=== PATIENT | male | born 1940 | race Caucasian/White ===

== ENCOUNTER → 2016-04-28 | Outpatient (CLI) | payer MEDICARE, OTHER ==
--- NOTE | 2016-04-28 15:10 | RADRPT ---
EXAM DATE/TIME: 04/28/2016 15:00 [facility] COMPARISON: No previous studies available for comparison. INDICATIONS : Right wrist pain with no known injury. MEDICAL HISTORY : None. SURGICAL HISTORY : None. ENCOUNTER: Initial ACUITY: 2 months PAIN SCORE: 10/10 LOCATION: Right anterior wrist. FINDINGS: Three view examination of the right wrist demonstrates soft tissue swelling. No fracture. Vascular ca lcifications are seen. Bony mineralization is normal. CONCLUSION: Soft tissue swelling without fracture. Brent العلي MD on April 28, 2016 at 15:07 Board Certified Radiologist. This report was verified electronically.
== END ==
LOC: HLAB 14:41
PROVIDERS: ATTEND Family Medicine
DX: M25.531 Pain in right wrist (principal)
CPT/HCPCS: 73110

== ENCOUNTER → 2017-06-14 | Outpatient (CLI) | payer OTHER, MEDICARE ==
[~2017-06-14] MED LIST: ADVA250A INH; ASPI1CHW4 CHEW; HYDR-3583 PO; VENTAER INH
== END ==
LOC: CPRE 09:38
PROVIDERS: ATTEND Orthopaedic Surgery Orthopaedic Trauma
DX: M79.609 Pain in unspecified limb (principal); Z96.60 Presence of unspecified orthopedic joint implant; Z79.01 Long term (current) use of anticoagulants; Z13.9 Encounter for screening, unspecified

== ENCOUNTER 2017-06-22 05:26 | Inpatient (IN) | payer MEDICARE, OTHER ==
[~2017-06-22] VITALS: Ht 188 cm; Wt 88.5 kg
[~2017-06-22 05:26] MED LIST changes: -ASPI1CHW4 CHEW; -HYDR-3583 PO
[2017-06-22] MEDS ORDERED: SODIUM CHLORID 0.9% 500 ML IV PRN (06:00)
[2017-06-22] MEDS ORDERED: POVIDONE IODINE 5% (ANTISEPSIS KIT) 4 APPLICATIONS EACH NARE PRN (06:00)
[2017-06-22] MEDS ORDERED: CHLORHEXIDINE GLUCONATE 2 % 1 PACK (2 CLOTHS) TOPICAL PRN (06:00)
[2017-06-22] MEDS ORDERED: METOPROLOL TARTRATE 25 MG TAB PO PRN (06:00)
[2017-06-22] MEDS ORDERED: LACTATED RINGER'S 1000 ML IV PRN (06:00)
[2017-06-22] MEDS ORDERED: ACETAMINOPHEN 1000 MG/100 ML 100 ML IV ONE (06:15)
[2017-06-22] MEDS ORDERED: CELECOXIB 200 MG CAP PO ONE (06:15)
[2017-06-22] MEDS ORDERED: ONDANSETRON HCL 4 MG/2 ML VIAL IV PUSH ONE (06:15)
[2017-06-22] MEDS ORDERED: FAMOTIDINE 20 MG/2 ML VIAL IV PUSH ONE (06:15)
[2017-06-22] MEDS ORDERED: CHLORHEXIDINE GLUCONATE 4% SOLN 120 ML BTL TOPICAL SCH (06:15)
[2017-06-22] MEDS ORDERED: DEXAMETHASONE SOD PHOS 20 MG/5 ML VIAL IV PUSH ONE (06:15)
[2017-06-22] MEDS ORDERED: GABAPENTIN 300 MG CAP PO ONE (06:15)
[2017-06-22] MEDS ORDERED: ceFAZolin 2 GM PREMIX 50 ML IV SCH (06:15)
[2017-06-22] MEDS ORDERED: VANCOMYCIN 1 GM/200 ML INJ 200 ML IV SCH (06:15)
[2017-06-22] MEDS ORDERED: ASPI1CHW4 CHEW (07:47)
[2017-06-22] MEDS ORDERED: HYDR-3583 PO (07:47)
[2017-06-22] MEDS ORDERED: BUPIVACAINE-EPI PF 0.25% INJ 20 ML, BUPIVACAINE LIPOSO PF 1.3% INJ 20 ML in SODIUM CHLO... P-ARTICULR SCH (09:00)
[2017-06-22] MEDS ORDERED: TRANEXAMIC ACID IV SCH (09:00)
[2017-06-22] MEDS ORDERED: SODIUM CHLORIDE 0.9% IV SCH (09:00)
[2017-06-22] MEDS ORDERED: GENTAMICIN SULFATE 80 MG/2 ML VIAL ONE (09:33)
[2017-06-22] MEDS ORDERED: ROCURONIUM INJ 50 MG/5 ML SYRINGE IV PUSH ONE (12:00)
[2017-06-22] MEDS ORDERED: PHENYLEPH/NS 1000 MCG/10 ML SYR IV ONE (12:00)
[2017-06-22] MEDS ORDERED: LACTATED RINGER'S 1000 ML INJ 1,000 ML IV ONE (12:00)
[2017-06-22] MEDS ORDERED: NEOSTIGMINE 5 MG/5 ML SYRINGE IV PUSH ONE (12:00)
[2017-06-22] MEDS ORDERED: GLYCOPYRROLATE 1 MG/5 ML SYRINGE IV PUSH ONE (12:00)
[2017-06-22] MEDS ORDERED: PROPOFOL 200 MG/20 ML AMP IV ONE (12:00)
[2017-06-22] MEDS ORDERED: LIDOCAINE HCL 1% PF 5 ML SYRINGE OTHER ONE (12:00)
[2017-06-22] MEDS ORDERED: LABETALOL HCL 100 MG/20 ML VIAL IV ONE (12:00)
--- NOTE | 2017-06-22 12:07 | PD.OP ---
cc: Ronald Meraz MD Operative Report Date of Surgery: June 22, 2017 Preoperative Diagnosis: Severe left hip osteoarthritis Postoperative Diagnosis: Procedure: Left total hip arthroplasty Anesthesia: General Surgeon: Ronald Meraz Carbide Grinder(s): TATIANA Bates PA-C The surgical procedure was assisted by my physician real estate administrative assistant. My P.A. presence was necessary throughout this case for the manipulation and positioning of the surgical extremity. My P.A. was assisting me throughout the duration of this procedure. The skill set of a physician real estate administrative assistant was medically necessary to complete this procedure. During the surgical case the surgical services asst was working at the back table and the physician real estate administrative assistant was directly assisting me. Operation and Findings: PLAN OF ACTIVITY Weight bear as tolerated. IMPLANTS USED DePuy Corail size 15 high offset stem with a size [52] [place] Gription cup, [ 52/36] Altrx poly liner, and a [36+1] ceramic Biolox ceramic head. DETAILS OF PROCEDURE: This patient has a long history of hip pain. Patient was found to have severe osteoarthritis. The patient had radiographic evidence of joint space narrowing with [id number] arthritis and osteophytes around the acetabulum as well as the femoral head. There was also some cystic changes. The patient failed conservative treatment with pain medications, anti-inflammatories, physical therapy, assistive devices including a cane, as well as therapeutic injection of the hip. Patient's hip arthritis was limiting his ability to ambulate and perform activities of daily living. The patient wished to proceed with surgery and informed consent was obtained. Operative site was marked. I discussed both posterior approach and anterior approach with the patient and decision was made for anterior approach. Patient was brought to OR and placed on OR table. IV sedation and general anesthesia was administered by anesthesiologist. Patient positioned on a Farzana table and was given IV antibiotics. Time-out procedure was performed. The hip and thigh were prepped with alcohol followed by Hibiclens. The thigh was draped in the usual sterile fashion. Clean Air Suite was used for this procedure. The procedure began with a 5-inch incision over the anterolateral thigh. Subcutaneous tissue was dissected with Bovie. The fascia over the tensa fasciae latae was incised. Care was taken to avoid injury to the lateral femoral cutaneous nerve. The tensor muscle was retracted laterally. Sartorius was retracted medially. Retractors were now placed. The reflected head of the rectus is now elevated. A capsulotomy was performed over the anterior head capsule. Sutures were placed to help retract the capsule. At this point the femoral head and neck were identified. With soft tissue protected, oscillating saw was used to make a cut through the femoral neck, the femoral head was now removed. At this point attention was turned to preparation of the acetabulum. The labrum was excised. The acetabulum was sequentially reamed up to size [52]. A [place] cup was now placed. Fluoroscopy was used to aid in identification of appropriate version. Cup was fully impacted and found to have excellent fit. Hole eliminator was now placed. The liner was now impacted into the cup. At this point the hip was externally rotated. A hook was placed around the proximal femur. The capsule was released off the lateral and medial femur. The hip was now extended and adducted. Retractors were placed around the proximal femur to allow for exposure. A box osteotome was used to remove the lateral cortex of the femoral neck. A broach was used to help lateralize the prosthesis. Canal finder was used to create a path down the canal. Next, the canal was sequentially broached up to size [15]. This was found to be an excellent fit. Calcar planer was placed. A standard head was placed, and the hip was reduced. The hip was found to have excellent stability with good range of motion. The leg lengths were measured under fluoroscopy and found to be equal compared to preoperatively. Trial broach was removed. The Corail stem was opened. Stem was fully impacted into the proximal femur in appropriate version. The femoral head was placed. The hip was again reduced. Fluoroscopy confirmed excellent alignment of prosthesis. The wound was thoroughly irrigated and capsule was closed with #1 Vicryl. The fascia over the tensor fasciae muscle was closed with #1 Vicryl, subcutaneous tissue was closed with 3-0 Vicryl and the skin was closed with godfrey and Dermabond skin closure. The capsule layers, muscle, and subcutaneous tissue were injected with a mixture of saline and bupivicaine. Dressings were applied. The patient was transferred to Recovery Room in stable condition. Ronald Meraz MD June 22, 2017 12:07
[2017-06-22] MEDS ORDERED: ACETAMINOPHEN/HYDROcodone 325 MG/10 MG TAB PO PRN (12:15)
[2017-06-22] MEDS ORDERED: ACETAMINOPHEN/HYDROcodone 325 MG/5 MG TAB PO PRN (12:15)
[2017-06-22] MEDS ORDERED: ACETAMINOPHEN/HYDROcodone 325 MG/7.5 MG TAB PO PRN (12:15)
[2017-06-22] MEDS ORDERED: ONDANSETRON HCL 4 MG/2 ML VIAL IVP PRN (12:15)
[2017-06-22] MEDS ORDERED: Post-op Orders (for Pharmacy) XX ONE (12:15)
[2017-06-22] MEDS ORDERED: MORPHINE SULFATE 4 MG/ML INJ IV PUSH PRN (12:15)
[2017-06-22] MEDS ORDERED: NALOXONE HCL 0.4 MG/ML AMP IV PUSH PRN (12:15)
[2017-06-22] MEDS ORDERED: DO NOT ADM ANY ANTICOAGULANT DRUGS PRN (12:36)
[2017-06-22] MEDS ORDERED: *morphine SULFATE 4 MG/ML PERIprocedure ONLY ONE (13:21)
[2017-06-22] MEDS: LACTATED RINGER'S 1000 ML INJ 1,000 ML IV SCH (13:30)
[2017-06-22] MEDS ORDERED: ASPIRIN 81 MG CHEW TAB ONE (13:57)
[2017-06-22] MEDS ORDERED: KETOROLAC TROMETHAMINE 30 MG/ML (IVP) VIAL IV PUSH SCH (15:00)
[2017-06-22] MEDS ORDERED: TRANEXAMIC ACID INJ 1,000 MG in SODIUM CHLORIDE 0.9% INJ 100 ML IV ONE (15:00)
--- NOTE | 2017-06-22 15:03 | RADRPT ---
EXAM DATE/TIME: 06/22/2017 13:34 [facility] COMPARISON: No previous studies available for comparison. INDICATIONS : Post op left hip surgery. MEDICAL HISTORY : None. SURGICAL HISTORY : None. ENCOUNTER: Initial ACUITY: 1 day PAIN SCORE: 0/10 LOCATION: Left hip and pelvis FINDINGS: Left hip and AP pelvis views were performed. Non-cemented left-sided total hip arthroplasty with ort hotopic alignment. Hardware is intact. Multiple skin godfrey. CONCLUSION: Expected postsurgical findings status post total hip arthroplasty. Magdaleno Serrano MD on June 22, 2017 at 15:00 Board Certified Radiologist. This report was verified electronically.
[2017-06-22 15:30] VITALS: BP 126/68; PULSE 72; RESP 18; TEMP 98.1; O2SAT 95
[2017-06-22] MEDS: ceFAZolin 2 GM PREMIX 50 ML IV SCH ×2 (16:13→21:59)
--- NOTE | 2017-06-22 16:18 | RADRPT ---
EXAM DATE/TIME: 06/22/2017 09:33 [facility] COMPARISON: No previous studies available for comparison. INDICATIONS : Left total hip arthroplasty. MEDICAL HISTORY : Unobtainable. SURGICAL HISTORY : Unobtainable. ENCOUNTER: Initial ACUITY: 1 day PAIN SCORE: Non-responsive. LOCATION: Left hip FINDINGS: 2 images are recorded digitally the operating room using C-arm during left total hip arthroplasty. CONCLUSION: Intraoperative images. Magdaleno Serrano MD on June 22, 2017 at 16:15 Board Certified Radiologist. This report was verified electronically.
[2017-06-22] MEDS: ACETAMINOPHEN 1000 MG/100 ML 100 ML IV SCH (16:37)
[2017-06-22] MEDS: ASPIRIN 81 MG CHEW TAB CHEW SCH (18:17)
[2017-06-22 20:00] VITALS: BP 133/60; PULSE 68; RESP 22; TEMP 97.4; O2SAT 96
[2017-06-22] MEDS: VANCOMYCIN INJ 1,000 MG in SODIUM CHLOR 0.9% 250 ML INJ 250 ML IV SCH (21:58)
[2017-06-22] MEDS: CELECOXIB 200 MG CAP PO SCH (21:59)
[2017-06-22] MEDS: ALBUTEROL SULFATE 90 MCG/ACT HFA 8 GM INHALER INH SCH (22:01)
[2017-06-22] MEDS: BUDESONIDE-FORMOTEROL 160/4.5 MCG INHALER INH SCH (22:01)
[2017-06-23] VITALS: BP 123/63; PULSE 78; RESP 22; TEMP 97.4; O2SAT 93
[2017-06-23] MEDS: LACTATED RINGER'S 1000 ML INJ 1,000 ML IV SCH ×3 (00:28→21:03)
[2017-06-23] MEDS: ACETAMINOPHEN 1000 MG/100 ML 100 ML IV SCH ×2 (03:45→15:25)
[2017-06-23] MEDS: ceFAZolin 2 GM PREMIX 50 ML IV SCH (03:45)
[2017-06-23 04:00] VITALS: BP 121/58; PULSE 70; RESP 20; TEMP 97.8; O2SAT 95
[2017-06-23 07:02] LABS: HEMATOCRIT 34.2 % (39.0-51.0); HEMOGLOBIN 11.7 GM/DL (13.0-17.0)
[2017-06-23 08:00] VITALS: BP 112/55; PULSE 69; RESP 18; TEMP 97.6; O2SAT 94
--- NOTE | 2017-06-23 08:20 | PD.ORT.PN ---
Subjective Subjective Remarks Hip is doing good status post total hip arthroplasty POD 1. His only complaint is that he is having difficulty urinating Objective Vitals Vital Signs Date Time Temp Pulse Resp B/P (MAP) Pulse Ox O2 Delivery O2 Flow Rate FiO2 06/23/17 04:00 97.8 70 20 121/58 (79) 95 06/23/17 00:00 97.4 78 22 123/63 (83) 93 06/22/17 20:00 97.4 68 22 133/60 (84) 96 06/22/17 15:30 98.1 72 18 126/68 (87) 95 06/22/17 14:40 97.9 70 16 117/64 (81) 94 Nasal Cannula 2 06/22/17 14:30 70 16 117/64 (81) 94 Nasal Cannula 2 06/22/17 14:00 79 16 129/77 (94) 95 Nasal Cannula 2 06/22/17 13:45 69 14 123/60 (81) 95 Nasal Cannula 6 06/22/17 13:30 85 16 147/76 (99) 95 Nasal Cannula 6 06/22/17 13:15 71 16 109/59 (76) 96 Nasal Cannula 6 06/22/17 13:00 71 16 110/59 (76) 96 Nasal Cannula 6 06/22/17 12:45 76 16 112/57 (75) 95 Nasal Cannula 6 06/22/17 12:35 97.9 93 14 122/65 (84) 90 Nasal Cannula 6 I/O 06/22/17 06/22/17 06/22/17 06/23/17 06/23/17 06/23/17 07:00 15:00 23:00 07:00 15:00 23:00 Intake Total 1200 ml 810 ml 1366 ml Output Total 300 ml 350 ml 200 ml Balance 900 ml 460 ml 1166 ml Intake Oral 150 ml 320 ml IV Total 660 ml 1046 ml Other 1200 ml Output Urine Total 350 ml 200 ml Estimated Blood Loss 300 ml # Bowel Movements 0 Result Diagram: 06/23/17 0525 Imaging Last 24 hours Impressions Hip and Pelvis X-Ray 06/22/17 1203 Signed Impressions: Service Date/Time: Thursday, June 22, 2017 13:34 - CONCLUSION: Expected postsurgical findings status post total hip arthroplasty. Magdaleno Serrano MD Objective Remarks Left lower extremity: Clean dry dressings intact. Minimal swelling and ecchymosis surrounding the incision. He has no pain with knee or ankle range of motion. Distally he has intact sensation with good capillary refills. He has active dorsiflexion and plantarflexion of foot. Assessment & Plan Problem List: (1) Status post left hip replacement ICD Codes: Z96.642 - Presence of left artificial hip joint Assessment and Plan Left total hip arthroplasty POD 1 Physical therapy weightbearing as tolerated twice daily Lovenox Incentive spirometry Dry dressings changed POD 2 with Primapore only. He will begin adding Xeroform over incision POD 10 daily. If Xeroform is not available bacitracin may be used. Plan for discharge home tomorrow Continue to assess difficulty with urination Maxim Alvares Jr. June 23, 2017 08:20
--- NOTE | 2017-06-23 08:21 | HHI.FF ---
Face to Face Verification Diagnosis: (1) Status post left hip replacement Physical Therapy Gait training, Safety evaluation Hip: Total hip, Protocol: Left Left LE Weight Bearing: WB as tolerated S/P Spinal Fusion: Gait training with walker Nursing Dressing Changes: Daily dressing change, Xeroform (Begin adding on 07/02/2017 daily with Primapore. If Xeroform is not available apply bacitracin), Coverderm /Primapore I have seen patient Lee Turner on 06/23/17. My clinical findings support the need for the requested home health care services because: Limited ability to care for self I certify that my clinical findings support that this patient is homebound because: Unsteady gait/balance Maxim Alvares Jr. June 23, 2017 08:21
[2017-06-23] MEDS: ASPIRIN 81 MG CHEW TAB CHEW SCH ×2 (08:37→21:03)
[2017-06-23] MEDS: CELECOXIB 200 MG CAP PO SCH ×2 (08:37→21:03)
[2017-06-23] MEDS: VANCOMYCIN INJ 1,000 MG in SODIUM CHLOR 0.9% 250 ML INJ 250 ML IV SCH (08:37)
[2017-06-23] MEDS: BUDESONIDE-FORMOTEROL 160/4.5 MCG INHALER INH SCH ×2 (08:38→21:08)
[2017-06-23] MEDS: ALBUTEROL SULFATE 90 MCG/ACT HFA 8 GM INHALER INH SCH ×2 (08:38→21:08)
[2017-06-23 12:00] VITALS: BP 140/65; PULSE 93; RESP 18; TEMP 98.3; O2SAT 95
[2017-06-23 16:00] VITALS: BP 124/58; PULSE 83; RESP 18; TEMP 97.8; O2SAT 95
[2017-06-23 19:49] VITALS: BP 140/64; PULSE 88; RESP 18; TEMP 97.9; O2SAT 96
[2017-06-23] MEDS: DOCUSATE SODIUM 100 MG CAP PO SCH (21:03)
[2017-06-24] VITALS: BP 142/66; PULSE 97; RESP 20; TEMP 97.4; O2SAT 95
[2017-06-24] MEDS ORDERED: SENNOSIDES 8.6 MG TAB PO PRN (02:00)
[2017-06-24] MEDS ORDERED: BISACODYL 10 MG SUPP RECTAL PRN (02:00)
[2017-06-24] MEDS ORDERED: LACTULOSE SYRUP 20 GM/30 ML CUP PO PRN (02:00)
[2017-06-24] MEDS: ACETAMINOPHEN 1000 MG/100 ML 100 ML IV SCH (03:01)
--- NOTE | 2017-06-24 06:45 | PD.ORT.PN ---
Subjective Subjective Remarks POD 1 s/p left anterior TASHA doing well. pain controlled. reports that ambulating halls with no problem. reports urinated yesterday Objective Vitals Vital Signs Date Time Temp Pulse Resp B/P (MAP) Pulse Ox O2 Delivery O2 Flow Rate FiO2 06/24/17 00:00 97.4 97 20 142/66 (91) 95 06/23/17 19:49 97.9 88 18 140/64 (89) 96 06/23/17 16:00 97.8 83 18 124/58 (80) 95 06/23/17 12:00 98.3 93 18 140/65 (90) 95 06/23/17 08:00 97.6 69 18 112/55 (74) 94 I/O 06/23/17 06/23/17 06/23/17 06/24/17 06/24/17 06/24/17 07:00 15:00 23:00 07:00 15:00 23:00 Intake Total 1366 ml 250 ml 1060 ml 320 ml Output Total 200 ml 300 ml Balance 1166 ml 250 ml 1060 ml 20 ml Intake Oral 320 ml 960 ml 220 ml IV Total 1046 ml 250 ml 100 ml 100 ml Output Urine Total 200 ml 300 ml # Voids 4 # Bowel Movements 0 0 0 Result Diagram: 06/23/17 0525 Imaging Last 24 hours Impressions Hip and Pelvis X-Ray 06/22/17 1203 Signed Impressions: Service Date/Time: Thursday, June 22, 2017 13:34 - CONCLUSION: Expected postsurgical findings status post total hip arthroplasty. Magdaleno Serrano MD Objective Remarks Left lower extremity: Clean dry dressings intact. Minimal swelling and ecchymosis surrounding the incision. He has no pain with knee or ankle range of motion. Distally he has intact sensation with good capillary refills. He has active dorsiflexion and plantarflexion of foot. Assessment & Plan Problem List: (1) Status post left hip replacement ICD Codes: Z96.642 - Presence of left artificial hip joint Assessment and Plan 1) Left anterior total hip arthroplasty - POD 1 Physical therapy weightbearing as tolerated twice daily Lovenox Incentive spirometry Dry dressings changed POD 2 with Primapore only. He will begin adding Xeroform over incision POD 10 daily. If Xeroform is not available bacitracin may be used. Plan for discharge home today f/u with Johnny or PA in 2 weeks Jose Elias Donovan PA/Tailer Out PA June 24, 2017 06:44
--- NOTE | 2017-06-24 06:57 | HHI.DS ---
Discharge Summary Admission Date June 22, 2017 at 05:26 Discharge Date: June 24, 2017 Admitting Diagnosis Left hip osteoarthritis Diagnosis: (1) Status post left hip replacement Diagnosis: Principal ICD Codes: Z96.642 - Presence of left artificial hip joint Procedures Left anterior total hip arthroplasty CBC/BMP: 06/23/17 0525 Significant Findings Laboratory Tests Test 06/23/17 05:25 Hemoglobin 11.7 GM/DL (13.0-17.0) Hematocrit 34.2 % (39.0-51.0) PE at Discharge Left lower extremity: Clean dry dressings intact. Minimal swelling and ecchymosis surrounding the incision. He has no pain with knee or ankle range of motion. Distally he has intact sensation with good capillary refills. He has active dorsiflexion and plantarflexion of foot. Hospital Course Patient admitted for outpatient basis for an elective left total hip arthroplasty. Patient has been battling left hip pain for many years. Conservative treatment was exhausted which included activity modification, anti- inflammatory medications, and intra-articular steroid injections. The decision was made to proceed with elective left total hip arthroplasty. He tolerated procedure well was admitted to [facility]. He is out of bed on postop day 0 ambulating with therapy and a walker. On postop day 1 he noted that he had trouble urinating. By postop day 2, he had urinated, his pain is well controlled, he was hemodynamically stable, dressing changes have been initiated and he was fit for discharge home with home health care. He will be discharged home today with home health care. He will remain fully weight-bearing. He will have daily dressing changes with a Primapore dressing. He will keep the incision clean and dry. He will follow up with Dr. Turner or his PA in 2 weeks. Pt Condition on Discharge: Good Discharge Disposition: Disch w/ Home Health Serv Discharge Instructions Diet Instructions: As Tolerated, No Restrictions Activities You Can Perform: Full Weight Bearing Follow up Referrals: Orthopedics - 2 Weeks @ [facility] with Ronald Turner MD New Medications: Aspirin (Aspirin 81 Low Dose) 81 Mg Chew 81 MG CHEW BID for blood clot prevention, #60 TAB Hydrocodone-Acetaminophen (Hydrocodone-Acetaminophen) 10-325 mg Tab 1 TAB PO Q4H PRN for PAIN, #60 TAB 0 Refills Continued Medications: Albuterol 18 GM Inh (Ventolin Hfa 18 GM Inh) 90 Mcg/Act Aer 2 PUFF INH BID for Shortness of Breath, #1 INHALER 0 Refills Fluticasone-Salmeterol Inh (Advair Diskus Inh) 250-50 Mcg/Blist Aer 1 PUFF INH BID for Shortness of Breath, #1 INHALER 0 Refills Rinse mouth after use. Jose Elias Donovan/Form Setter CLAUDY June 24, 2017 06:57
[2017-06-24] MEDS: DOCUSATE SODIUM 100 MG CAP PO SCH (07:55)
[2017-06-24] MEDS: ASPIRIN 81 MG CHEW TAB CHEW SCH (07:55)
[2017-06-24] MEDS: CELECOXIB 200 MG CAP PO SCH (07:55)
[2017-06-24] MEDS: BUDESONIDE-FORMOTEROL 160/4.5 MCG INHALER INH SCH (07:56)
[2017-06-24] MEDS: ALBUTEROL SULFATE 90 MCG/ACT HFA 8 GM INHALER INH SCH (07:56)
[2017-06-24 07:58] VITALS: BP 123/72; PULSE 70; RESP 18; TEMP 97.4; O2SAT 99
[2017-06-24] MEDS ORDERED: MAGNESIUM HYDROXIDE SUSP 30 ML CUP PO SCH (09:00)
[2017-06-24 11:41] VITALS: BP 135/67; PULSE 93; RESP 18; TEMP 97.8; O2SAT 95
== END 2017-06-24 12:26 | disposition home health service (06) | DRG 470 ==
LOC: HSDI 05:26 → N06B 15:07
PROVIDERS: ADMIT Orthopaedic Surgery Orthopaedic Trauma; ATTEND Orthopaedic Surgery Orthopaedic Trauma
PROC: 0SRB04A Replacement of Left Hip Joint with Ceramic on Polyethylene Synthetic Substitute, Uncemented, Open Approach (ICD-10-PCS; principal; 2017-06-22 09:58)
DX: M16.12 Unilateral primary osteoarthritis, left hip (principal); J44.9 Chronic obstructive pulmonary disease, unspecified; K21.9 Gastro-esophageal reflux disease without esophagitis; H91.90 Unspecified hearing loss, unspecified ear; Z87.891 Personal history of nicotine dependence; Z85.828 Personal history of other malignant neoplasm of skin
CPT/HCPCS: 73501; 73502; 76000; 85014; 85018; 86850; 86900; 86901; C1776; C9290; J0131; J0690; J1100; J1580; J1885; J2270; J2370; J2405; J2710; J3010; J3370; J7050; J7120